=== PATIENT | female | born 2000 | race Caucasian/White ===

== ENCOUNTER 2025-04-03 19:57 | Emergency (ER) | payer OTHER ==
[~2025-04-03] VITALS: Ht 165.1 cm; Wt 90.7 kg
[2025-04-03 19:57] VITALS: BP 121/72
[2025-04-03] MEDS ORDERED: IBUPROFEN 600 MG TABLET ONE (20:34)
[2025-04-03] MEDS: IBUPROFEN 600 MG TABLET PO ONE (20:35)
[2025-04-03] MEDS ORDERED: IBUP-1490 PO (20:58)
[2025-04-03 21:07] VITALS: BP 121/72; O2SAT 98
== END 2025-04-03 21:08 | disposition home or self-care (01) ==
LOC: ER 19:57
DX: S93.491A Sprain of other ligament of right ankle, initial encounter (principal); Z88.0 Allergy status to penicillin; W18.39XA Other fall on same level, initial encounter; Y93.89 Activity, other specified; Y92.89 Other specified places as the place of occurrence of the external cause; Y99.8 Other external cause status
CPT/HCPCS: 73610; A4606; A4663